=== PATIENT | male | born 2000 | race Caucasian/White ===

== ENCOUNTER 2020-06-09 12:48 | Outpatient (REF) | payer BC, SELFPAY ==
[2020-06-10 15:38] LABS: GC Result Negative (Negative)
[2020-06-10 16:03] LABS: Chlamydia Result Positive (Negative)
== END 2020-06-09 13:08 ==
LOC: NCHCN 12:48
PROVIDERS: PCP Pediatrics; Visit Provider Nurse Practitioner Family
DX: Z11.3 Encounter for screening for infections with a predominantly sexual mode of transmission (principal)
CPT/HCPCS: 87491; 87591; 81003

== ENCOUNTER 2020-08-29 19:01 | Outpatient (REF) | payer BC, SELFPAY ==
[2020-09-02 22:44] LABS: Patient Race White; SARS-CoV-2 RNA Undetected (Undetected); SARS-CoV-2 Specimen Source Nasal
== END 2020-08-29 19:21 ==
LOC: LBN 19:01
PROVIDERS: Visit Provider Pediatrics
DX: Z11.59 Encounter for screening for other viral diseases (principal)
CPT/HCPCS: U0003

== ENCOUNTER 2020-09-04 04:39 | Outpatient (CLI) | payer BC, SELFPAY ==
[2020-09-07 14:57] LABS: Patient Race White; SARS-CoV-2 RNA Undetected (Undetected); SARS-CoV-2 Specimen Source Nasal
== END 2020-09-04 04:59 ==
PROVIDERS: Visit Provider Pediatrics
DX: Z11.59 Encounter for screening for other viral diseases (principal)
CPT/HCPCS: U0003

== ENCOUNTER 2021-01-09 02:39 | Outpatient (CLI) | payer BC, SELFPAY ==
[2021-01-10 13:21] LABS: COVID-19 RT-PCR UVMMC Result Negative (Negative)
== END 2021-01-09 02:40 | disposition home or self-care (01) ==
LOC: LBO 02:39
PROVIDERS: Visit Provider Pediatrics
DX: Z20.822 Contact with and (suspected) exposure to COVID-19 (principal)
CPT/HCPCS: U0003

== ENCOUNTER 2021-07-07 13:29 | Emergency (ER) | payer BC, SELFPAY ==
[2021-07-07 13:42] VITALS: BP 148/78; PULSE 58; RESP 14; TEMP 36.8; O2SAT 100
--- NOTE | 2021-07-07 13:55 | ED.GENADUL_ITS ---
Discharge Plan Disposition Patient Disposition: HOME Condition: Improving Discharge Details Clinical Impression: Acute left otitis media Primary Care Provider: Unknown,Unknown ED Provider: Jean Nj Home Meds and New Rx's Prescriptions: New amoxicillin-pot clavulanate 875-125 mg tablet 1 tab PO BID 10 Days Qty: 20 RF: 0 Discharge Instructions Instructions: Ear Infection (ED) Additional Instructions: Take antibiotics as prescribed until finished. Stay liberally hydrated. Tylenol and/or ibuprofen as needed for pain. Medical Decision Making 21-year-old male has had an antecedent URI for 7 to 10 days with dry cough, runny nose. Now presents with 2 to 3 days of left ear pain has been constant. He did have a Covid test earlier on illness that was negative. Today's examination is consistent with acute left otitis media. I will place him on a course of Augmentin. He is stable and appropriate for discharge to home. HPI General Mode of arrival: ambulatory . Date/Time Provider Initiated Documentation: 07/07/21 13:32 . Limitations to Documentation: no limitations . Information obtained by: patient . History of Present Illness 21 year old M presents to the emergency department with the chief complaint of Left ear pain after URI, described as moderate, Quality is described as dull and constant, and is localized to the head, face and left. Patient reports no radiation. Patient started experiencing this day(s) and it has been constant. No relieving factors improve symptom(s), No exacerbating factors reported . Patient notes denies fever/chills, syncope and weakness. Patient did receive the following treatments prior to arrival, none Related Data Home Medications Medication Instructions Recorded Confirmed amoxicillin-pot clavulanate 1 tab PO BID 10 Days #20 tab 07/07/21 Previous Rx's Medication Instructions Recorded amoxicillin-pot clavulanate 1 tab PO BID 10 Days #20 tab 07/07/21 Allergies Allergy/AdvReac Type Severity Reaction Status Date / Time No Known Allergies Allergy Unverified 07/07/21 13:45 General Stated Complaint: GenMedical EMILY: 4 Review of Systems Narrative: 6 systems reviewed and otherwise negative. Had negative Covid test early in the illness. No persistent cough or shortness of breath. PFSH Family History Grandfather Heart disease Social History Smoking/Tobacco Use Status: Current-Occasional Smoking risk assessment performed?: Yes Alcohol Intake: current Alcohol Intake frequency: a few times a month Drug use: Socially Substance use type: marijuana Do you feel safe in your relationship?: Yes Exam Narrative Exam Narrative: GEN: awake, alert, oriented 3. Pleasant, well groomed, interactive. HEAD: Normocephalic, atraumatic ENT: Mucous membranes moist, oropharynx slightly erythematous without asymmetry or exudate., left tympanic membrane distended, erythematous, external ear exam unremarkable EYES: PERRL, EOMI NECK: Full ROM, no CHAYITO, no menigismus CHEST/RESP: Nontender, clear to auscultation bilateral, no wheeze/rhonchi/rales CARDIOVASCULAR: RRR, no murmur, rub nita. 2+ Rad pulse bilateral Neuro: Grossly normal neurologic exam, conversant, interactive. Psych: Speech fluent, thoughts congruent, affect normal Course Vital Signs Vital signs: Vital Signs Temperature 36.8 C 07/07/21 13:42 Pulse 58 L 07/07/21 13:42 Respiratory Rate 14 07/07/21 13:42 Blood Pressure 148/78 H 07/07/21 13:42 Pulse Oximetry 100 07/07/21 13:42 Temperature 36.8 C 07/07/21 13:42 Temperature Source Skin 07/07/21 13:42 Pulse 58 L 07/07/21 13:42 Respiratory Rate 14 07/07/21 13:42 Respiratory Effort 07/07/21 13:46 Blood Pressure 148/78 H 07/07/21 13:42 Blood Pressure Position Sitting 07/07/21 13:42 Pulse Oximetry 100 07/07/21 13:42 Oxygen Delivery Method Room Air 07/07/21 13:42 Oxygen Flow Rate 0 07/07/21 13:42 Pain Level 8 07/07/21 13:42
== END 2021-07-07 14:23 | disposition home or self-care (01) ==
PROVIDERS: Emergency Provider Emergency Medicine
DX: H66.92 Otitis media, unspecified, left ear (principal)
CPT/HCPCS: 99283

== ENCOUNTER 2025-01-03 14:05 | Emergency (ER) | payer SELFPAY ==
[2025-01-03 14:09] VITALS: BP 135/88; PULSE 92; RESP 16; TEMP 36.8; O2SAT 98
--- NOTE | 2025-01-03 14:43 | ED.GENADUL_ITS ---
Discharge Plan Disposition Patient Disposition: Home Discharge Details Clinical Impression: Laceration of scalp Primary Care Provider: Unknown,Unknown ED Provider: Salas Shirley Home Meds and New Rx's Prescriptions: No Action No Known Home Meds Discharge Instructions Instructions: Laceration Repair With Michela ED Additional Instructions: Your wound was closed with 3 michela, they should stay in for 7 to 10 days and then can come out Wash area with soap and water pat dry. Over the next couple of days you may have some soreness ice pack and Tylenol can be helpful for this Your tetanus shot updated today HPI General Date/Time Provider Initiated Documentation: 01/03/25 14:32 . Limitations to Documentation: no limitations . Information obtained by: patient . HPI Narrative: 24-year-old gentleman without significant past medical history presents for evaluation of acute onset head injury. Just prior to arrival he reports that the, new gun he was using fell off the roof. He states that he was about 5 or 6 feet above his head. He reports 5 to 8 pounds. He did not lose consciousness. He denies any numbness or tingling. He states today, slid off the left side of his head. He does report that there is a wound there visual change, neck pain or numbness or tingling Related Data Home Medications ?Medication ?Instructions ?Recorded ?Confirmed Unknown [No Known Home Meds] 01/03/25 01/03/25 Allergies Allergy/AdvReac Type Severity Reaction Status Date / Time No Known Allergies Allergy Unverified 01/03/25 14:11 General Stated Complaint: Laceration EMILY: 3 Exam Narrative Exam Narrative: Review of Systems: All systems reviewed & are unremarkable except as noted in HPI and below Well-developed, no acute distress 3 cm laceration on the left frontal parietal area no skull deformity or tenderness, no foreign body PERRL, normal conjunctiva C-collar placed in triage, there is no midline C-spine tenderness step-off or deformity, full range of motion of neck, Upper extremities with good strength and normal sensation RRR Unlabored respiratory effort no focal neurologic deficits Course Vital Signs Vital signs: Vital Signs Temperature 36.8 C 01/03/25 14:09 Pulse 92 H 01/03/25 14:09 Respiratory Rate 16 01/03/25 14:09 Blood Pressure 135/88 01/03/25 14:09 Pulse Oximetry 98 01/03/25 14:09 Temperature 36.8 C 01/03/25 14:09 Pulse 92 H 01/03/25 14:09 Respiratory Rate 16 01/03/25 14:09 Blood Pressure 135/88 01/03/25 14:09 Pulse Oximetry 98 01/03/25 14:09 Pain Level 2 01/03/25 14:31 Procedure Laceration Laceration 1: Site: scalp Side (If applicable): left Description: linear Depth: simple, single layer Local anesthetic: LET(lidocaine epinephrine tetracaine) Skin layer closed with: michela Number of sutures:: 3 Medical Decision Making Emergent evaluation of acute head injury. The patient has no neurologic deficit. The scalp does have a small laceration but I have a low suspicion for skull fracture or acute intracranial process. I do not feel that CT imaging is indicated. Tetanus updated today. Laceration repaired without complication., Tolerated procedure well Quality:SDOH Health Related Social Needs: No Data to Display PFSH All Active Problems (Updated 01/03/25 @ 15:07 by Salas Shirley MD) Laceration of scalp (Acute) Acute left otitis media (Acute) Screen for STD (sexually transmitted disease) (Acute) Family History Grandfather Heart disease Social History Smoking/Tobacco Use Status: Current-Occasional Smoking risk assessment performed?: Yes Alcohol Intake: current Alcohol Intake frequency: a few times a month Drug use: Socially Substance use type: marijuana Do you feel safe in your relationship?: Yes
[2025-01-03] MEDS: Diph,Pertuss(Acell),Tet Vac/Pf 0.5 ML SYR IM (14:47)
[2025-01-03] MEDS: Lidocaine/Epinephri/Tetracaine Topical Gel 3 ML TP (14:47)
[2025-01-03] MEDS: Acetaminophen 500 MG TAB 1000 MG PO (14:47)
[2025-01-03 15:16] VITALS: BP 116/67; PULSE 68; RESP 18
== END 2025-01-03 15:17 | disposition home or self-care (01) ==
LOC: ER 15:19
PROVIDERS: Emergency Provider Emergency Medicine
DX: S01.01XA Laceration without foreign body of scalp, initial encounter (principal); Z23 Encounter for immunization; W20.8XXA Other cause of strike by thrown, projected or falling object, initial encounter; Y93.H3 Activity, building and construction; Y92.89 Other specified places as the place of occurrence of the external cause; Y99.0 Civilian activity done for income or pay
CPT/HCPCS: 12002; 90471; 90715; 99283

== ENCOUNTER 2025-01-11 14:04 | Emergency (ER) | payer SELFPAY ==
[2025-01-11 14:15] VITALS: BP 146/80; PULSE 71; RESP 20; TEMP 36.8; O2SAT 98
--- NOTE | 2025-01-11 15:49 | ED.GENADUL_ITS ---
Discharge Plan Discharge Details Chief Complaint: Recheck Primary Care Provider: None,None ED Provider: Sherrie Cheney Home Meds and New Rx's Prescriptions: No Action No Known Home Meds HPI General Date/Time Provider Initiated Documentation: 01/11/25 14:26 . HPI Narrative: 24-year-old male presents 8 days post-head injury for staple removal. No headache or additional complaints. Alert, oriented, ambulatory with steady gait. Related Data Home Medications ?Medication ?Instructions ?Recorded ?Confirmed Unknown [No Known Home Meds] 01/03/25 01/11/25 Allergies Allergy/AdvReac Type Severity Reaction Status Date / Time No Known Allergies Allergy Verified 01/11/25 14:19 General Stated Complaint: Recheck EMILY: 4 Exam Narrative Exam Narrative: General Appearance: Normal. Vital signs: Within normal limits. HEENT: Within normal limits. Respiratory: Within normal limits. Skin: Michela removed without incident. Skin wound approximation. Neurological: Normal. Course Vital Signs Vital signs: Vital Signs Temperature 36.8 C 01/11/25 14:15 Pulse 71 01/11/25 14:15 Respiratory Rate 20 01/11/25 14:15 Blood Pressure 146/80 H 01/11/25 14:15 Pulse Oximetry 98 01/11/25 14:15 Temperature 36.8 C 01/11/25 14:15 Pulse 71 01/11/25 14:15 Respiratory Rate 20 01/11/25 14:15 Blood Pressure 146/80 H 01/11/25 14:15 Pulse Oximetry 98 01/11/25 14:15 Pain Level 0 01/11/25 14:15 Medical Decision Making Initial Assessment: 24-year-old male presents 8 days after head injury for removal of michela. Denies headache or additional complaints. Alert and oriented, ambulatory with steady gait. ED Course: - Three michela removed without incident. - Skin wound approximation. - Reviewed return precautions; patient expressed understanding. Final Assessment: Michela removed without incident. Skin wound approximation. Return precautions reviewed and understood. Clinical Impression: - Post-head injury status Disposition: - Discharge MDM Components Evaluation: - Number of Differential Diagnoses or Management Options: None - Amount and Complexity of Data Reviewed: None - Risk of Complication and Morbidity or Mortality: Low risk based on current presentation and treatment plan. Quality:SDOH Health Related Social Needs: No Data to Display [facility] All Active Problems (Updated 01/03/25 @ 15:07 by Salas Shirley MD) Laceration of scalp (Acute) Acute left otitis media (Acute) Screen for STD (sexually transmitted disease) (Acute) Family History Grandfather Heart disease Social History Smoking/Tobacco Use Status: Current-Occasional Smoking risk assessment performed?: Yes Alcohol Intake: current Alcohol Intake frequency: a few times a month Drug use: Socially Substance use type: marijuana Do you feel safe in your relationship?: Yes
== END 2025-01-11 14:32 | disposition home or self-care (01) ==
LOC: ER 14:25
PROVIDERS: Emergency Provider Physician Assistant
DX: Z48.02 Encounter for removal of sutures (principal)
CPT/HCPCS: 99281; 99282